=== PATIENT | female | born 1970 | race African-American/Black ===

== ENCOUNTER 2020-10-16 09:32 | Emergency (ER) | payer SELFPAY ==
[2020-10-16 09:41] VITALS: BP 186/104
--- NOTE | 2020-10-16 10:53 | ER Document Report ---
ED Eye Complaint - General Chief Complaint: vision changes Stated Complaint: BLURRED VISION Time Seen by Provider: 10/16/20 10:30 Primary Care Provider: FRANCISCO SEGURA MD [Primary Care Provider] - Follow up as needed Mode of Arrival: Ambulatory Information source: Patient - HPI Contact lenses worn: No Associated symptoms: Blurred vision. denies: Eyelid swelling, Orbital swelling, Double vision Notes: Patient presents stating for the last 2 to 3 days she has had 2-3 instances of her vision being blurry for several seconds at a time. She denies any other symptoms. No pain. No vomiting. Specifically no headache or eye pain. She states that she has been diagnosed with high blood pressure in the past but has not been on her medicine for approximately 2 years. No recent trauma. No recent fevers. She states that she also does not currently have a primary care physician. Patient denies any trouble speaking or swallowing. No problems with movement of any extremities. Nothing appears to make the symptoms better or worse. Past Medical History - General Information source: Patient - Social History Smoking Status: Current Every Day Smoker Frequency of alcohol use: Social Drug Abuse: None Family History: Reviewed & Not Pertinent - Past Medical History Cardiac Medical History: Reports: Hx Hypertension - since 2004 - Immunizations Hx Diphtheria, Pertussis, Tetanus Vaccination: Yes Review of Systems - Review of Systems Constitutional: denies: Chills, Fever Cardiovascular: denies: Chest pain, Palpitations Respiratory: denies: Cough, Short of breath -: Yes All other systems reviewed and negative Physical Exam - Vital signs Vitals: Temp Resp BP Pulse Ox 97.8 F 18 186/104 H 100 10/16/20 09:40 10/16/20 09:40 10/16/20 09:40 10/16/20 09:40 Interpretation: Normal - General General appearance: Appears well, Alert - HEENT Head: Normocephalic, Atraumatic Eyes: Normal Conjunctiva: Normal Cornea: Normal Extraocular movements intact: Yes Eyelashes: Normal Pupils: PERRL Visual acuity- Right eye: 20/25 Visual acuity- Left eye: 20/30 Visual acuity- Both eyes: 20/20 Corrective lenses worn: No Nerve palsy: No - Respiratory Respiratory status: No respiratory distress Chest status: Nontender Breath sounds: Normal Chest palpation: Normal - Cardiovascular Rhythm: Regular Heart sounds: Normal auscultation Murmur: No - Abdominal Inspection: Normal Distension: No distension Bowel sounds: Normal Tenderness: Nontender Organomegaly: No organomegaly - Back Back: Normal, Nontender - Extremities General upper extremity: Normal inspection, Nontender, Normal color, Normal ROM, Normal temperature General lower extremity: Normal inspection, Nontender, Normal color, Normal ROM, Normal temperature, Normal weight bearing. No: Ulises's sign - Neurological Neuro grossly intact: Yes Cognition: Normal Orientation: AAOx4 [place] Coma Scale Eye Opening: Spontaneous [place] Coma Scale Verbal: Oriented [place] Coma Scale Motor: Obeys Commands [place] Coma Scale Total: 15 Speech: Normal Cranial nerves: Normal Cerebellar coordination: Normal. 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 No: Pronator drift Sensory: Normal - Psychological Associated symptoms: Normal affect, Normal mood - Skin Skin Temperature: Warm Skin Moisture: Dry Skin Color: Normal Course - Re-evaluation Re-evalutation: 10/16/20 10:54 Patient presents with several episodes of transient blurry vision. I believe this is most likely secondary to patient's increased blood pressure. I have discussed this with her and will provide her with a prescription for blood pressure medication. I have instructed her that this prescription will be free if she takes it to [facility]. She states she understands and will take it there. I have also instructed her that she will need to follow-up with an disc pad grinder. Here exam is unremarkable including visual acuity. Her neurological exam is also unremarkable and I do not believe the patient would benefit from further imaging. - Vital Signs Vital signs: Temp Pulse Resp BP Pulse Ox 97.8 F 18 186/104 H 100 10/16/20 09:40 10/16/20 09:40 10/16/20 09:40 10/16/20 09:40 Discharge - Discharge Clinical Impression: Blurry vision, Uncontrolled hypertension Condition: Stable Disposition: HOME, SELF-CARE Additional Instructions: Please take your blood pressure medicine every day as prescribed. Please make an appointment with your primary care physician as soon as possible and have your blood pressure rechecked this week. Please make an appointment with an eye doctor as soon as possible to have a thorough eye exam. Prescriptions: Amlodipine Besylate [Norvasc 5 mg Tablet] 5 mg PO DAILY 90 Days #90 tablet Forms: Elevated Blood Pressure, Return to Work Referrals: FRANCISCO SEGURA MD [Primary Care Provider] - Follow up in 3-5 days DEYSI BARKSDALE MD [ACTIVE STAFF] - Follow up in 3-5 days [facility] [place] [Provider Group] - Follow up in 3-5 days
== END 2020-10-16 11:18 | disposition home or self-care (01) ==
LOC: ER 09:32
DX: H53.8 Other visual disturbances (principal); F17.200 Nicotine dependence, unspecified, uncomplicated; I10 Essential (primary) hypertension
CPT/HCPCS: 99283